=== PATIENT | female | born 1975 | race Caucasian/White ===

== ENCOUNTER 2020-05-12 19:28 | Emergency (ER) | payer BC, MEDICAID ==
[2020-05-12] MEDS ORDERED: Ketorolac 60 MG/2 ML SDV IM ONE (20:17)
[2020-05-12] MEDS ORDERED: Cyclobenzaprine 10 MG Tab PO ONE (20:21)
[2020-05-12] MEDS ORDERED: HYDROmorphone 1 MG/ML Syringe IM ONE (21:08)
--- NOTE | 2020-05-12 21:18 | EDM.PDOC ---
ED HPI GENERAL MEDICAL PROBLEM - General Chief Complaint: Back Pain or Injury Stated Complaint: FELL ON BACK MOVING FURINTURE Time Seen by Provider: 05/12/20 19:43 Source of Information: Reports: Patient, RN Notes Reviewed History Limitations: Reports: No Limitations - History of Present Illness INITIAL COMMENTS - FREE TEXT/NARRATIVE: Patient is a 44-year-old female presenting to the emergency department with complaints of upper back pain with muscle spasms. She states she was lifting heavy boxes and moving furniture today when she turned her arm. She has been having pain to the area since that time. She describes a history of similar problems. She used to work as a NURSES ASSISTANT and would frequently have strained muscles in this area to her back. She has used Soma in the past and states that that works quite well for her. Today she took tramadol, Tylenol, and has been icing her back with no relief. She states heat does somewhat improve the symptoms. She does have an appointment scheduled tomorrow with her chiropractor. Middle Back Pain Score (Numeric/FACES): 10 - Related Data Allergies Allergy/AdvReac Type Severity Reaction Status Date / Time No Known Allergies Allergy Verified 05/12/20 20:24 Home Meds: Home Meds Naproxen [Naprosyn] 500 mg PO Q12HR 5 Days #10 tab 05/12/20 [Rx] carisoprodoL [Soma] 250 mg PO Q8H PRN #9 tablet 05/12/20 [Rx] Past Medical History - Past Health History Medical/Surgical History: Denies Medical/Surgical History Psychiatric History: Reports: Depression Social & Family History - Tobacco Use Tobacco Use Status *Q: Never Tobacco User ED ROS GENERAL - Review of Systems Review Of Systems: See Below Constitutional: Reports: No Symptoms HEENT: Reports: No Symptoms Respiratory: Reports: No Symptoms Cardiovascular: Reports: No Symptoms Endocrine: Reports: No Symptoms GI/Abdominal: Reports: No Symptoms : Reports: No Symptoms Musculoskeletal: Reports: Back Pain (upper back pain) Skin: Reports: No Symptoms Neurological: Reports: No Symptoms Psychiatric: Reports: No Symptoms Hematologic/Lymphatic: Reports: No Symptoms Immunologic: Reports: No Symptoms ED EXAM, UPPER BACK/NECK PAIN - Physical Exam Exam: See Below General Appearance: Alert, Mild Distress Neck Exam: Non-Tender, Full Range of Motion, Normal Alignment, Normal Inspection Cardiovascular/Respiratory: Regular Rate, Rhythm, No M/R/G, Normal Peripheral Pulses, No JVD, Normal Breath Sounds, No Respiratory Distress GI/Abdominal: Normal Bowel Sounds, Soft, Non-Tender, No Organomegaly, No Distention, No Abnormal Bruit, No Mass Back Exam: Normal Inspection, Muscle Spasm (mid/upper back bilaterally), Paraspinal Tenderness (bilateral to T2-T12), Vertebral Tenderness (T2-T12) Neurologic: inside sales person II-XII nml As Tested, No Motor/Sensory Deficits, Alert, Normal Mood/Affect, Oriented x 3 Psychiatric: Normal Affect, Normal Mood Skin Exam: Normal Color, Warm/Dry Course - Vital Signs Last Recorded V/S: Last Vital Signs Temp 97.2 F 05/12/20 19:49 Pulse 107 H 05/12/20 19:49 Resp 16 05/12/20 19:49 BP 167/107 H 05/12/20 19:49 Pulse Ox 100 05/12/20 19:49 - Orders/Labs/Meds Orders: Active Orders 24 hr Category Date Time Status Thoracic Spine 2V [CR] Stat Exams 05/12/20 20:21 Taken Meds: Medications Discontinued Medications Generic Name Dose Route Start Last Admin Trade Name Freq PRN Reason Stop Dose Admin Cyclobenzaprine HCl 10 mg 05/12/20 20:21 05/12/20 20:42 Flexeril PO 05/12/20 20:22 10 mg ONETIME ONE Administration Hydromorphone HCl 1 mg 05/12/20 21:08 Dilaudid IM 05/12/20 21:09 ONETIME ONE Ketorolac Tromethamine 60 mg 05/12/20 20:17 05/12/20 20:42 Toradol IM 05/12/20 20:18 60 mg ONETIME ONE Administration - Re-Assessments/Exams Free Text/Narrative Re-Assessment/Exam: Patient is a 44-year-old female presenting to the emergency department with complaints of upper back pain with muscle spasms after lifting heavy boxes and furniture today. She is been using tramadol and Tylenol at home in addition to heat and ice with little relief. Patient has a history of similar occurrences. States she has used Flexeril in the past which did not help much. She has taken Soma in the past and states this helps quite a bit. She has an appointment scheduled with her chiropractor tomorrow afternoon. On exam, she does have significant vertebral tenderness from T2-T12 as well as bilateral muscle spasms. I have ordered Toradol 60 mg IM as well as Flexeril 10 mg p.o. as we do not carry Soma. 05/12/20 21:16 Patient states that she had some relief with the medications given, however if the pain is still there. States the Toradol took the edge off the pain. We will give her a shot of Dilaudid 1 mg IM. Discussed side effect profile associate with Soma, however patient states that she has been advised of this in the past and this is the only muscle relaxer that works for her. I will send a prescription for Naprosyn as well as a short course of Soma. Recommend she keep her appointment with her chiropractor tomorrow. She was advised not to start the Naprosyn or Soma until tomorrow morning to the medications that she received in the ER this evening. She verbalized understanding. Discharge instructions as documented. Departure - Departure Time of Disposition: 21:21 Disposition: Home, Self-Care 01 Condition: Good Clinical Impression: Back pain Qualifiers: Back pain location: thoracic back pain Chronicity: acute Back pain laterality: bilateral Qualified Code(s): M54.6 - Pain in thoracic spine - Discharge Information *PRESCRIPTION DRUG MONITORING PROGRAM REVIEWED*: Yes *COPY OF PRESCRIPTION DRUG MONITORING REPORT IN PATIENT LOURDES: No Prescriptions: Naproxen [Naprosyn] 500 mg PO Q12HR 5 Days #10 tab carisoprodoL [Soma] 250 mg PO Q8H PRN #9 tablet PRN Reason: Muscle Spasm Instructions: Acute Back Pain, Adult Referrals: PCP,Not In Area [Primary Care Provider] - Forms: ED Department Discharge Additional Instructions: You were seen in the emergency department today for upper back pain after lifting heavy boxes and furniture today. X-rays were completed on your back and showed no bony abnormalities. While in the ER, you received an injection of Toradol and Dilaudid as well as Flexeril which is a muscle relaxer. This did improve your symptoms. A prescription for Naprosyn and soma has been sent to [facility] in [place]. Take these medications as prescribed starting tomorrow. Recommend applying heat to your back intermittently. Keep your appointment with your chiropractor scheduled tomorrow. Return to ER as needed. Sepsis Event Note (ED) - Evaluation Sepsis Screening Result: No Definite Risk - Focused Exam Vital Signs: Vital Signs Temp Pulse Resp BP Pulse Ox 05/12/20 19:49 97.2 F 107 H 16 167/107 H 100 - My Orders Last 24 Hours: My Active Orders 05/12/20 20:21 Thoracic Spine 2V [CR] Stat - Assessment/Plan Last 24 Hours: My Active Orders 05/12/20 20:21 Thoracic Spine 2V [CR] Stat
--- NOTE | 2020-05-13 09:03 | CR ---
PROCEDURE INFORMATION: Exam: XR Thoracic Spine, 2 Views Exam date and time: 05/12/2020 8:51 PM Age: 44 years old Clinical indication: Pain in thoracic spine; Patient HX: Fall, back pain TECHNIQUE: Imaging protocol: XR of the thoracic spine, 2 views. COMPARISON: No relevant prior studies available. FINDINGS: Bones/joints: Normal. No acute fracture. Normal alignment. Soft tissues: Unremarkable. IMPRESSION: No acute findings. Thank you for allowing us to participate in the care of your patient. Dictated and Authenticated by: Kamari Eason MD 05/12/2020 10:20 PM Central Time ([place] & [place]) JASON
== END 2020-05-12 21:45 | disposition home or self-care (01) ==
LOC: JD.ED 19:28
DX: M54.6 Pain in thoracic spine (principal); X50.0XXA Overexertion from strenuous movement or load, initial encounter
CPT/HCPCS: 72070; 96372; 99283; A9270; J1170; J1885

== ENCOUNTER 2020-11-02 07:30 | Emergency (ER) | payer MEDICAID ==
--- NOTE | 2020-11-02 08:22 | EDM.PDOC ---
ED HPI GENERAL MEDICAL PROBLEM - General Chief Complaint: Abdominal Pain Stated Complaint: ABD PAIN/VOMITING/WEAK Time Seen by Provider: 11/02/20 08:14 - History of Present Illness INITIAL COMMENTS - FREE TEXT/NARRATIVE: 45-year-old female presents the emergency room with abdominal pain Patient states she was diagnosed with a kidney stone at the [facility] on Saturday. This was confirmed with a CT according to the patient. The patient uses tramadol 3 times a day for chronic hip arthritis however with the kidney stone pain has been using more of this. Patient denies any fevers or chills. She thinks her biggest problem is being out of the tramadol. She cannot get her tramadol refilled until the 06 November. Patient has some nausea and vomiting but she is unable to eat and feels she is dehydrated. Left Abdomen Pain Score (Numeric/FACES): 10 - Related Data Allergies Allergy/AdvReac Type Severity Reaction Status Date / Time latex Allergy Other Verified 11/02/20 08:01 zolpidem [From Ambien] Allergy Other Verified 11/02/20 08:01 Home Meds: Home Meds Desvenlafaxine [Desvenlafaxine ER] 50 mg PO DAILY 11/02/20 [History] LORazepam [Ativan] 1 mg PO BID PRN 11/02/20 [History] Ondansetron [Zofran ODT] 4 mg PO Q6H PRN #8 tab.dis 11/02/20 [Rx] Spironolactone [Aldactone] 25 mg PO DAILY 11/02/20 [History] lisinopriL [Lisinopril] 20 mg PO DAILY 11/02/20 [History] metFORMIN [Glucophage XR] 500 mg PO BID 11/02/20 [History] traMADol [Ultram] 50 mg PO TID PRN 11/02/20 [History] traMADol [Ultram] 50 mg PO TID PRN #12 tablet 11/02/20 [Rx] traZODone 100 - 200 mg PO BEDTIME 11/02/20 [History] Past Medical History - Past Health History Medical/Surgical History: Denies Medical/Surgical History Cardiovascular History: Reports: Hypertension Genitourinary History: Reports: Renal Calculus Psychiatric History: Reports: Depression Social & Family History - Family History Family Medical History: No Pertinent Family History - Tobacco Use Tobacco Use Status *Q: Never Tobacco User - Caffeine Use Caffeine Use: Reports: Soda - Recreational Drug Use Recreational Drug Use: No ED ROS GENERAL - Review of Systems Review Of Systems: See Below Constitutional: Reports: No Symptoms. Denies: Fever, Chills HEENT: Reports: No Symptoms Respiratory: Reports: No Symptoms Cardiovascular: Reports: No Symptoms GI/Abdominal: Reports: Abdominal Pain, Nausea, Vomiting. Denies: Constipation, Diarrhea : Reports: Flank Pain. Denies: Discharge, Dysuria, Hematuria Musculoskeletal: Reports: No Symptoms Skin: Reports: No Symptoms Neurological: Reports: No Symptoms ED EXAM, GENERAL - Physical Exam Exam: See Below Exam Limited By: No Limitations General Appearance: Alert, No Apparent Distress Head: Atraumatic, Normocephalic Neck: Normal Inspection, Supple, Non-Tender, Full Range of Motion Respiratory/Chest: No Respiratory Distress, Lungs Clear, Normal Breath Sounds Cardiovascular: Regular Rate, Rhythm, No Edema, No Murmur GI/Abdominal: Normal Bowel Sounds, Soft, Tender (Significant epigastric tenderness probably from the vomiting no rigidity rebound or guarding she has some vague suprapubic discomfort and some vague lower abdominal discomfort) Course - Vital Signs Last Recorded V/S: Last Vital Signs Temp 36.1 C 11/02/20 07:58 Pulse 84 11/02/20 07:58 Resp 19 11/02/20 07:58 BP 168/95 H 11/02/20 07:58 Pulse Ox 100 11/02/20 07:58 - Orders/Labs/Meds Orders: Active Orders 24 hr Category Date Time Status Lactated Ringers [Ringers, Lactated] 1,000 ml Med 11/02/20 10:37 Active IV .BOLUS Medication Orders Lactated Ringer's (Ringers, Lactated) 1,000 mls @ 999 mls/hr IV .BOLUS ONE Stop: 11/02/20 11:37 Last Admin: 11/02/20 10:42 Dose: Not Given Documented by: MARÍA ELENA Labs: Laboratory Tests 11/02/20 11/02/20 11/02/20 Range/Units 08:35 08:35 08:35 WBC 15.51 H (3.98-10.04) K/mm3 RBC 4.13 (3.98-5.22) M/mm3 Hgb 12.6 (11.2-15.7) gm/dl Hct 39.5 (34.1-44.9) % MCV 95.6 H (79.4-94.8) fl MCH 30.5 (25.6-32.2) pg MCHC 31.9 L (32.2-35.5) g/dl RDW Std Deviation 46.5 H (36.4-46.3) fL Plt Count 255 (182-369) K/mm3 MPV 10.9 (9.4-12.3) fl Neut % (Auto) 80.8 H (34.0-71.1) % Lymph % (Auto) 12.2 L (19.3-51.7) % Tucker % (Auto) 5.5 (4.7-12.5) % Eos % (Auto) 1.0 (0.7-5.8) Baso % (Auto) 0.2 (0.1-1.2) % Neut # (Auto) 12.55 H (1.56-6.13) K/mm3 Lymph # (Auto) 1.89 (1.18-3.74) K/mm3 Tucker # (Auto) 0.85 H (0.24-0.36) K/mm3 Eos # (Auto) 0.15 (0.04-0.36) K/mm3 Baso # (Auto) 0.03 (0.01-0.08) K/mm3 Manual Slide Review Normal smear Sodium 142 (136-145) mEq/L Potassium 4.2 (3.5-5.1) mEq/L Chloride 103 (98-107) mEq/L Carbon Dioxide 26 (21-32) mEq/L Anion Gap 17.2 H (5-15) BUN 11 (7-18) mg/dL Creatinine 1.0 (0.55-1.02) mg/dL Est Cr Clr Drug Dosing 68.36 mL/min Estimated GFR (MDRD) 60 (>60) mL/min BUN/Creatinine Ratio 11.0 L (14-18) Glucose 117 H (74-106) mg/dL Calcium 8.9 (8.5-10.1) mg/dL Total Bilirubin 0.5 (0.2-1.0) mg/dL AST 15 (15-37) U/L ALT 22 (14-59) U/L Alkaline Phosphatase 54 (46-116) U/L Total Protein 7.4 (6.4-8.2) g/dl Albumin 3.6 (3.4-5.0) g/dl Globulin 3.8 gm/dL Albumin/Globulin Ratio 1.0 (1-2) HCG, Qual (NEGATIVE) Urine Color Yellow (Yellow) Urine Appearance Clear (Clear) Urine pH 7.0 (5.0-8.0) Ur Specific [place] 1.025 (1.005-1.030) Urine Protein Negative (Negative) Urine Glucose (UA) Negative (Negative) Urine Ketones Trace H (Negative) Urine Occult Blood 2+ H (Negative) Urine Nitrite Negative (Negative) Urine Bilirubin Negative (Negative) Urine Urobilinogen 0.2 (0.2-1.0) Ur Leukocyte Esterase Negative (Negative) Urine RBC 10-20 H (0-5) /hpf Urine WBC 0-5 (0-5) /hpf Ur Squamous Epith Cells 30-40 H (0-5) /hpf Urine Bacteria Moderate H (FEW) /hpf Urine Mucus Moderate H (FEW) /hpf // Range/Units 08:35 WBC (3.98-10.04) K/mm3 RBC (3.98-5.22) M/mm3 Hgb (11.2-15.7) gm/dl Hct (34.1-44.9) % MCV (79.4-94.8) fl MCH (25.6-32.2) pg MCHC (32.2-35.5) g/dl RDW Std Deviation (36.4-46.3) fL Plt Count (182-369) K/mm3 MPV (9.4-12.3) fl Neut % (Auto) (34.0-71.1) % Lymph % (Auto) (19.3-51.7) % Tucker % (Auto) (4.7-12.5) % Eos % (Auto) (0.7-5.8) Baso % (Auto) (0.1-1.2) % Neut # (Auto) (1.56-6.13) K/mm3 Lymph # (Auto) (1.18-3.74) K/mm3 Tucker # (Auto) (0.24-0.36) K/mm3 Eos # (Auto) (0.04-0.36) K/mm3 Baso # (Auto) (0.01-0.08) K/mm3 Manual Slide Review Sodium (136-145) mEq/L Potassium (3.5-5.1) mEq/L Chloride (98-107) mEq/L Carbon Dioxide (21-32) mEq/L Anion Gap (5-15) BUN (7-18) mg/dL Creatinine (0.55-1.02) mg/dL Est Cr Clr Drug Dosing mL/min Estimated GFR (MDRD) (>60) mL/min BUN/Creatinine Ratio (14-18) Glucose (74-106) mg/dL Calcium (8.5-10.1) mg/dL Total Bilirubin (0.2-1.0) mg/dL AST (15-37) U/L ALT (14-59) U/L Alkaline Phosphatase (46-116) U/L Total Protein (6.4-8.2) g/dl Albumin (3.4-5.0) g/dl Globulin gm/dL Albumin/Globulin Ratio (1-2) HCG, Qual Negative (NEGATIVE) Urine Color (Yellow) Urine Appearance (Clear) Urine pH (5.0-8.0) Ur Specific [place] (1.005-1.030) Urine Protein (Negative) Urine Glucose (UA) (Negative) Urine Ketones (Negative) Urine Occult Blood (Negative) Urine Nitrite (Negative) Urine Bilirubin (Negative) Urine Urobilinogen (0.2-1.0) Ur Leukocyte Esterase (Negative) Urine RBC (0-5) /hpf Urine WBC (0-5) /hpf Ur Squamous Epith Cells (0-5) /hpf Urine Bacteria (FEW) /hpf Urine Mucus (FEW) /hpf Meds: Medications Generic Name Dose Route Start Last Admin Trade Name Freq PRN Reason Stop Dose Admin Lactated Ringer's 1,000 mls @ 999 mls/hr 11/02/20 10:37 11/02/20 10:42 Ringers, Lactated IV 11/02/20 11:37 Not Given .BOLUS ONE Discontinued Medications Generic Name Dose Route Start Last Admin Trade Name Freq PRN Reason Stop Dose Admin Lactated Ringer's 1,000 mls @ 999 mls/hr 11/02/20 08:23 11/02/20 08:48 Ringers, Lactated IV 11/02/20 09:23 999 mls/hr .BOLUS ONE Administration Ondansetron HCl 4 mg 11/02/20 08:23 11/02/20 08:48 Ondansetron 4 Mg/2 Ml Sdv IVPUSH 11/02/20 08:24 4 mg ONETIME ONE Administration Ondansetron HCl 4 mg 11/02/20 11:23 Ondansetron 4 Mg/2 Ml Sdv IVPUSH 11/02/20 11:24 ONETIME ONE Tramadol HCl 50 mg 11/02/20 11:23 Tramadol 50 Mg Tab PO 11/02/20 11:24 ONETIME ONE - Re-Assessments/Exams Free Text/Narrative Re-Assessment/Exam: 11/02/20 10:40 Contacted the hospital and [place] and have been unable to find any evidence of a CT does not sound like she has been seen there since the beginning of the month. Labs show mildly elevated white count she has some mild microscopic hematuria in her urine no other signs of UTI. We will go ahead and check a CT KUB at this point. The patient looks a little dry on her labs I ordered a second liter of fluid but the patient refused this. 11/02/20 11:27 CT is unremarkable for any acute changes no evidence of kidney stones. At this point we will give the patient dose of Zofran and give her 12 tramadol to last her until she can get this filled. Departure - Departure Time of Disposition: 11:27 Disposition: Home, Self-Care 01 Clinical Impression: Abdominal pain, Opioid withdrawal - Discharge Information Prescriptions: traMADol [Ultram] 50 mg PO TID PRN #12 tablet PRN Reason: Abdominal Pain Referrals: PCP,Not In Area [Primary Care Provider] - Forms: ED Department Discharge Additional Instructions: Return to the emergency room with any questions problems or worsening symptoms. You have been given a prescription for tramadol No. 12 to ease the withdrawal symptoms. I have also given you a prescription for Zofran, to help with the nausea and vomiting. Follow-up with your regular healthcare provider discuss your concerns about getting off the tramadol. Sepsis Event Note (ED) - Evaluation Sepsis Screening Result: No Definite Risk - Focused Exam Vital Signs: Vital Signs Temp Pulse Resp BP Pulse Ox 11/02/20 07:58 36.1 C 84 19 168/95 H 100 - My Orders Last 24 Hours: My Active Orders 11/02/20 10:37 Lactated Ringers [Ringers, Lactated] 1,000 ml IV .BOLUS - Assessment/Plan Last 24 Hours: My Active Orders 11/02/20 10:37 Lactated Ringers [Ringers, Lactated] 1,000 ml IV .BOLUS
[2020-11-02] MEDS ORDERED: Ondansetron 4 MG/2 ML SDV IVPUSH ONE ×2 (08:23→11:23)
[2020-11-02] MEDS ORDERED: Lactated Ringers 1,000 ML IV ONE ×2 (08:23→10:37)
--- NOTE | 2020-11-02 10:57 | CT ---
CT abdomen and pelvis Technique: Multiple axial sections were obtained from above the dome of the diaphragm inferiorly through the pubic symphysis. Intravenous and oral contrast were not utilized. Study has been performed as a ureteral stone protocol. Reconstructed coronal and sagittal images were obtained. Comparison: Prior CT abdomen and pelvis exam of 06/05/13. Findings: Kidneys show no abnormal calcifications. Ureters show no dilatation or any obstructing calculi. Visualized lung bases show nothing acute. Liver shows no focal parenchymal abnormality. Spleen appears normal in size. Adrenal glands show no nodule. Pancreas shows no discrete abnormality. Gallbladder contains no calcified gallstones. Abdominal aorta shows minimal atherosclerotic calcification with no aneurysm. No retroperitoneal adenopathy or mesenteric abnormalities are seen. Appendix is seen which is normal in size. No pelvic mass or adenopathy is appreciated. Bone window settings were reviewed which appear within normal limits for the patient's age. Impression: 1. No renal calculi are seen. No ureteral dilatation or ureteral stone is seen. 2. Nothing acute is appreciated on noncontrast CT study of the abdomen and pelvis. Diagnostic code #1
[2020-11-02] MEDS ORDERED: traMADol 50 MG Tab PO ONE (11:23)
== END 2020-11-02 11:50 | disposition home or self-care (01) ==
LOC: JD.ED 07:30
DX: R10.13 Epigastric pain (principal); F11.13 Opioid abuse with withdrawal; R11.2 Nausea with vomiting, unspecified; I10 Essential (primary) hypertension; Z79.899 Other long term (current) drug therapy; Z91.040 Latex allergy status; Z88.5 Allergy status to narcotic agent
CPT/HCPCS: 36415; 74176; 80053; 81001; 84703; 85025; 96374; 96376; 99284; A9270; J2405; J7120

== ENCOUNTER 2022-04-26 04:50 | Emergency (ER) | payer BC, MEDICAID ==
[2022-04-26] MEDS ORDERED: HYDROmorphone 0.5 MG/0.5 ML Syringe IVPUSH ONE ×2 (05:23→07:21)
[2022-04-26] MEDS ORDERED: Ondansetron 4 MG/2 ML SDV IVPUSH ONE (05:23)
[2022-04-26] MEDS ORDERED: Sodium Chloride 0.9% 1,000 ML IV ONE (05:23)
[2022-04-26] MEDS ORDERED: Nitrofurantoin Monohydrate/Macrocrystalline 100 MG Cap PO STA (07:39)
[2022-04-26] MEDS ORDERED: Phenazopyridine 95 MG Tab PO STA (07:40)
== END 2022-04-26 08:29 | disposition home or self-care (01) ==
LOC: JD.ED 04:50
DX: N39.0 Urinary tract infection, site not specified (principal); I10 Essential (primary) hypertension; E66.9 Obesity, unspecified; Z68.43 Body mass index [BMI] 50.0-59.9, adult; Z91.040 Latex allergy status; Z79.899 Other long term (current) drug therapy
CPT/HCPCS: 51701; 74176; 81001; 81025; 87086; 96361; 96374; 96375; 96376; 99284; A9270; J1170; J2405; J7030

== ENCOUNTER 2023-07-19 11:57 | Emergency (ER) | payer BC, MEDICAID ==
[2023-07-19] MEDS ORDERED: Sodium Chloride 0.9% 10 ML Syringe FLUSH PRN (12:26)
[2023-07-19] MEDS ORDERED: Ketorolac 30 MG/ML SDV IVPUSH ONE (12:27)
[2023-07-19] MEDS ORDERED: Ketorolac 15 MG/ML SDV IVPUSH ONE (12:30)
[2023-07-19] MEDS ORDERED: Sodium Chloride 0.9% 500 ML IV SCH (12:30)
[2023-07-19 13:03] LABS: BASOPHILS ABSOLUTE AUTO 0.1 K/mm3 (0.0-0.2); BASOPHILS PERCENT AUTO 0.5 % (0.0-1.0); EOSINOPHILS ABSOLUTE AUTO 0.1 K/mm3 (0.0-0.4); EOSINOPHILS PERCENT AUTO 0.4 % (0.0-6.0); HEMOGLOBIN 13.3 gm/dl (12.0-16.0); IMMATURE GRAN ABSOLUTE AUTO 0.04 K/mm3 (0.00-0.05); IMMATURE GRAN PERCENT AUTO 0.3 % (0.0-0.4); LYMPHOCYTES PERCENT AUTO 16.3 % (24.0-44.0); MEAN CORPUSCULAR HEMOGLOBIN 30.9 pg (28.0-32.0); MEAN CORPUSCULAR HGB CONC 33.3 g/dl (32.0-36.0); MEAN CORPUSCULAR VOLUME 92.8 fl (83.0-99.0); MEAN PLATELET VOLUME 10.3 fl (9.4-12.3); MONOCYTES ABSOLUTE AUTO 0.9 K/mm3 (0.0-0.8); MONOCYTES PERCENT AUTO 7.4 % (0.0-8.0); NEUTROPHILS ABSOLUTE AUTO 9.2 K/mm3 (1.8-7.7); NEUTROPHILS PERCENT AUTO 75.1 % (41.0-71.0); PLATELET COUNT,PLT 322 K/mm3 (150-400); RED BLOOD CELL COUNT 4.31 M/mm3 (4.10-5.30); WHITE BLOOD CELL COUNT,WBC 12.24 K/mm3 (3.9-11.3)
[2023-07-19 13:06] LABS: APPEARANCE,URINE CLEAR (Clear); BILIRUBIN,URINE NEGATIVE (Negative); COLOR,URINE YELLOW (Yellow); GLUCOSE,URINE NEGATIVE (Negative); KETONES,URINE NEGATIVE (Negative); LEUKOCYTE ESTERASE,URINE NEGATIVE (Negative); NITRITE,URINE NEGATIVE (Negative); OCCULT BLOOD,URINE TRACE-LYSED (Negative); PROTEIN,URINE NEGATIVE (Negative); UROBILINOGEN,URINE 0.2 (0.2-1.0)
[2023-07-19] MEDS ORDERED: LORazepam 1 MG Tab PO ONE (13:24)
[2023-07-19 13:25] LABS: BACTERIA,URINE FEW /hpf (FEW); EPITHELIAL CELLS,URINE 0-5 /hpf (0-5); MUCUS,URINE FEW /hpf (FEW); WBC,URINE 0-5 /hpf (0-5)
[2023-07-19 13:32] LABS: A/G RATIO 0.9 (1-2); ALBUMIN 3.6 g/dl (3.4-5.0); ANION GAP 14.3 (5-15); BILIRUBIN TOTAL 0.3 mg/dL (0.2-1.0); BUN/CREATININE RATIO 6.7 (14-18); CALCIUM 8.7 mg/dL (8.5-10.1); CREATININE 0.9 mg/dL (0.55-1.02); EST CRCL DRUG DOSING (CG) 73.53 mL/min; POTASSIUM,K 3.3 mEq/L (3.5-5.1); PROTEIN TOTAL,TP 7.8 g/dl (6.4-8.2)
== END 2023-07-19 13:55 | disposition home or self-care (01) ==
LOC: JD.ED 11:57
DX: K59.4 Anal spasm (principal); E87.6 Hypokalemia; I10 Essential (primary) hypertension; E66.9 Obesity, unspecified; Z68.41 Body mass index [BMI] 40.0-44.9, adult; Z88.8 Allergy status to other drugs, medicaments and biological substances; Z91.040 Latex allergy status
CPT/HCPCS: 36415; 74176; 80053; 81001; 84703; 85025; 96374; 99284; A9270; J1885; J3490; J7030

== ENCOUNTER 2024-01-15 10:18 | Emergency (ER) | payer MEDICAID ==
[2024-01-15] MEDS: LORazepam 1 MG Tab PO ONE (11:19)
== END 2024-01-15 12:50 | disposition home or self-care (01) ==
LOC: JD.ED 10:18
DX: M54.6 Pain in thoracic spine (principal); F41.9 Anxiety disorder, unspecified; I10 Essential (primary) hypertension; E66.9 Obesity, unspecified; Z79.899 Other long term (current) drug therapy; Z68.41 Body mass index [BMI] 40.0-44.9, adult; Z91.040 Latex allergy status; Z88.8 Allergy status to other drugs, medicaments and biological substances
CPT/HCPCS: 72072; 72100; 99283; A9270; 99284

== ENCOUNTER 2024-05-12 07:06 | Emergency (ER) | payer MEDICAID | END 2024-05-12 08:35 | disposition home or self-care (01) | LOC: JD.ED 07:06 | DX: Z76.0 Encounter for issue of repeat prescription (principal); F41.9 Anxiety disorder, unspecified; I10 Essential (primary) hypertension; E66.9 Obesity, unspecified; Z91.040 Latex allergy status; Z88.8 Allergy status to other drugs, medicaments and biological substances; Z79.891 Long term (current) use of opiate analgesic; Z79.899 Other long term (current) drug therapy | CPT/HCPCS: 99282; 99283 ==

== ENCOUNTER 2024-07-07 16:42 | Emergency (ER) | payer MEDICAID ==
[2024-07-07] MEDS: Metoclopramide 10 MG/2 ML SDV IVPUSH ONE (17:32)
[2024-07-07] MEDS: Sodium Chloride 0.9% 10 ML Syringe FLUSH PRN (17:32)
[2024-07-07] MEDS: Sodium Chloride 0.9% 1,000 ML IV ONE (17:32)
[2024-07-07] MEDS: hydrOXYzine HCl 25 MG Tab PO ONE (18:33)
== END 2024-07-07 18:39 | disposition home or self-care (01) ==
LOC: JD.ED 16:42
DX: A08.4 Viral intestinal infection, unspecified (principal); F41.9 Anxiety disorder, unspecified; I10 Essential (primary) hypertension; E66.9 Obesity, unspecified; Z68.41 Body mass index [BMI] 40.0-44.9, adult; Z88.8 Allergy status to other drugs, medicaments and biological substances; Z91.040 Latex allergy status; Z79.899 Other long term (current) drug therapy
CPT/HCPCS: 87428; 96361; 96374; 99284; A9270; J2765; J7030